=== PATIENT | female | born 1990 | race Caucasian/White ===

== ENCOUNTER 2020-03-03 22:32 | Emergency (ER) | payer SELFPAY ==
[2020-03-03] MEDS ORDERED: Acetaminophen 500 MG TAB ONE (23:42)
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
== END 2020-03-04 00:51 | disposition home or self-care (01) ==
LOC: ERS 22:32
DX: O26.891 Other specified pregnancy related conditions, first trimester (principal); R10.32 Left lower quadrant pain; O10.911 Unspecified pre-existing hypertension complicating pregnancy, first trimester; O99.341 Other mental disorders complicating pregnancy, first trimester; F41.9 Anxiety disorder, unspecified; Z79.899 Other long term (current) drug therapy; F17.210 Nicotine dependence, cigarettes, uncomplicated; O99.331 Smoking (tobacco) complicating pregnancy, first trimester; Z3A.01 Less than 8 weeks gestation of pregnancy
CPT/HCPCS: 76856; 93976

== ENCOUNTER 2020-10-11 11:33 | Outpatient (CLI) | payer MEDICAID, OTHER ==
[2020-10-11 22:24] LABS: SARS-CoV-2 PCR by NAA Not Detected (NotDetected)
== END 2020-10-11 11:34 | disposition home or self-care (01) ==
LOC: LABBT 11:33
PROVIDERS: ATTEND Obstetrics & Gynecology
DX: Z01.812 Encounter for preprocedural laboratory examination (principal); Z20.822 Contact with and (suspected) exposure to COVID-19
CPT/HCPCS: 87635; U0003; U0005

== ENCOUNTER 2020-10-14 05:30 | Inpatient (IN) | payer MEDICAID, OTHER ==
[2020-10-14] MEDS ORDERED: Docusate 100 MG CAP PO PRN (06:01)
[2020-10-14] MEDS ORDERED: Diphenoxylate HCl/Atropine Tablet PO PRN ×2 (06:01)
[2020-10-14] MEDS ORDERED: hydrALAZINE 20 MG/ML VIAL SLOW IVP PRN ×2 (06:01→14:31)
[2020-10-14] MEDS ORDERED: Ibuprofen 800 MG TAB PO PRN (06:01)
[2020-10-14] MEDS ORDERED: Acetaminophen 500 MG TAB PO PRN (06:01)
[2020-10-14] MEDS ORDERED: HYDROcodone/Acetaminophen 5/325 mg Tablet PO PRN ×2 (06:01)
[2020-10-14] MEDS ORDERED: Misoprostol 200 MCG TAB PR PRN (06:01)
[2020-10-14] MEDS ORDERED: Lactated Ringer's 1,000 ML IV SCH (06:01)
[2020-10-14] MEDS ORDERED: NS / Oxytocin 40 units/1000ml 1,000 ML IV PRN (06:01)
[2020-10-14] MEDS ORDERED: Butorphanol Tartrate 1 MG/ML VIAL SLOW IVP PRN (06:01)
[2020-10-14] MEDS ORDERED: Promethazine HCl 25 MG/ML VIAL IM PRN (06:01)
[2020-10-14] MEDS ORDERED: Acetaminophen/Codeine 30-300mg Tablet PO PRN ×4 (06:01→14:31)
[2020-10-14] MEDS ORDERED: Ondansetron PF 4 MG/2 ML Vial IVP PRN ×2 (06:01→14:31)
[2020-10-14] MEDS ORDERED: Lidocaine 1% (PF) 30 ML VIAL SC PRN (06:01)
[2020-10-14 06:15] VITALS: BMI 31.3
[2020-10-14] MEDS ORDERED: NS w/ Oxytocin 30 units 500 ML ONE ×2 (06:21→15:54)
[2020-10-14 06:23] LABS: Hemoglobin 12.6 g/dL (12.0-16.0); Mean Corpuscular HGB CONC 33.4 g/dL (32.0-36.0); Mean Corpuscular Hemoglobin 31.7 pg (27.0-31.0); Mean Platelet Volume 7.9 fL (7.4-10.4); Platelet Count 233 thou/uL (130-400); RBC Distribution Width 12.3 % (11.5-14.5); Red Blood Cell (RBC) Count 3.97 mill/uL (4.20-5.40); White Blood Cell (WBC) Count 18.6 thou/uL (4.8-10.8)
[2020-10-14 07:07] LABS: HBSAg Index 0.13 S/CO (0-0.99); Hep B Surf Ag Non-Reactive S/CO (NonReactive)
[2020-10-14 07:08] LABS: Syphilis Antibody Nonreactive (Nonreactive); Syphilis Antibody Index 0.01 S/CO (<1.00 Non-Reactive)
[2020-10-14 08:30] LABS: Medtox Reader # READER 4
[2020-10-14 08:31] LABS: Amphetamine Detected (NotDetected); Barbiturates Screen Not Detected (NotDetected); Benzodiazepine Screen Not Detected (NotDetected); Cocaine Metabolite Screen Not Detected (NotDetected); Medtox Control Line Valid? VALID (VALID); Methadone Not Detected (NotDetected); Methamphetamine Not Detected (NotDetected); Opiate Screen Not Detected (NotDetected); Oxycodone Screen Not Detected (NotDetected); Phencyclidine (PCP) Not Detected (NotDetected); THC/Cannabinoid Screen Not Detected (NotDetected); Tricyclic Screen Not Detected (NotDetected)
[2020-10-14] MEDS ORDERED: Bupivacaine PF 0.5% 30 ML VIAL ONE (10:00)
[2020-10-14] MEDS ORDERED: Calcium Carbonate 500 MG ChewTAB PO PRN (10:19)
[2020-10-14] MEDS ORDERED: Fentanyl 4 mcg/Bup 0.1% Cadd 100 ML ONE (12:14)
[2020-10-14] MEDS ORDERED: diphenhydrAMINE 25 MG CAP PO PRN (14:31)
[2020-10-14] MEDS ORDERED: Zolpidem Tartrate 5 MG TAB PO PRN (14:31)
[2020-10-14] MEDS ORDERED: Preparation H Ointment 28 GM TUBE PR PRN (14:31)
[2020-10-14] MEDS ORDERED: Benzocaine-Menthol 82.5 ML CAN TOP PRN (14:31)
[2020-10-14] MEDS ORDERED: Misoprostol 200 MCG TAB VAG PRN (14:31)
[2020-10-14] MEDS ORDERED: Lanolin Ointment 7 GM TUBE TOP PRN (14:31)
[2020-10-14] MEDS ORDERED: Bisacodyl 10 MG SUPP PR PRN (14:31)
[2020-10-14] MEDS ORDERED: Milk Of Magnesia 30 ML UDCUP PO PRN (14:31)
[2020-10-14] MEDS ORDERED: NS / Oxytocin 40 units/1000ml 1,000 ML IV SCH (14:45)
[2020-10-14] MEDS: Ferrous Sulfate 325 MG TAB PO SCH (18:03)
[2020-10-14] MEDS: Docusate Calcium (SURFAK) 240 MG CAP PO SCH (20:00)
[2020-10-14] MEDS: HYDROcodone/Acetaminophen 5/325 mg Tablet PO PRN (20:00)
[2020-10-14] MEDS ORDERED: Ibuprofen 800 MG TAB PO SCH (22:00)
[2020-10-15] MEDS: HYDROcodone/Acetaminophen 5/325 mg Tablet PO PRN ×3 (00:02→10:29)
[2020-10-15] MEDS: Ibuprofen 800 MG TAB PO SCH ×2 (04:23→13:11)
[2020-10-15 05:36] LABS: Hemoglobin 11.6 g/dL (12.0-16.0); Mean Corpuscular HGB CONC 33.9 g/dL (32.0-36.0); Mean Corpuscular Hemoglobin 32.6 pg (27.0-31.0); Mean Corpuscular Volume 96.2 fL (78.0-98.0); Platelet Count 165 thou/uL (130-400); RBC Distribution Width 12.2 % (11.5-14.5); Red Blood Cell (RBC) Count 3.55 mill/uL (4.20-5.40); White Blood Cell (WBC) Count 15.8 thou/uL (4.8-10.8)
[2020-10-15] MEDS: Ferrous Sulfate 325 MG TAB PO SCH (07:03)
[2020-10-15] MEDS: Docusate Calcium (SURFAK) 240 MG CAP PO SCH (08:44)
[2020-10-15] MEDS ORDERED: Prenatal Vitamin 1 TAB PO SCH (09:00)
[2020-10-15 13:55] VITALS: BP 112/61; TEMP 98.3
[2020-10-15] MEDS ORDERED: Adacel (T-DAP) 0.5 ML SYRINGE IM ONE (14:31)
== END 2020-10-15 17:11 | disposition home or self-care (01) | DRG 807 ==
LOC: L&D 05:34 → 3SW 17:49
PROVIDERS: ADMIT Obstetrics & Gynecology; ATTEND Obstetrics & Gynecology
PROC: 10E0XZZ Delivery of Products of Conception, External Approach (ICD-10-PCS; principal; 2020-10-14)
PROC: 0KQM0ZZ Repair Perineum Muscle, Open Approach (ICD-10-PCS; 2020-10-14)
PROC: 3E033VJ Introduction of Other Hormone into Peripheral Vein, Percutaneous Approach (ICD-10-PCS; 2020-10-14)
PROC: 10907ZC Drainage of Amniotic Fluid, Therapeutic from Products of Conception, Via Natural or Artificial Opening (ICD-10-PCS; 2020-10-14)
DX: O48.0 Post-term pregnancy (principal); Z37.0 Single live birth; Z3A.40 40 weeks gestation of pregnancy; Z20.822 Contact with and (suspected) exposure to COVID-19; O99.62 Diseases of the digestive system complicating childbirth; K21.9 Gastro-esophageal reflux disease without esophagitis; O99.344 Other mental disorders complicating childbirth; O99.334 Smoking (tobacco) complicating childbirth; F17.200 Nicotine dependence, unspecified, uncomplicated; O77.0 Labor and delivery complicated by meconium in amniotic fluid; O70.1 Second degree perineal laceration during delivery; Z79.899 Other long term (current) drug therapy; F41.9 Anxiety disorder, unspecified; F32.9 Major depressive disorder, single episode, unspecified
CPT/HCPCS: 36415; 51702; 80306; 85027; 86780; 86850; 86900; 86901; 87340; J0595; J2590; S0020